=== PATIENT | female | born 1950 | race Caucasian/White ===

== ENCOUNTER → 2016-08-10 | Outpatient (REF) | payer BC ==
[2016-08-10 16:14] LABS: PERCENT SATURATION 21.1 % (13.2-37.4)
== END ==
LOC: M LAB REF 12:53
PROVIDERS: ATTEND Internal Medicine
DX: K62.5 Hemorrhage of anus and rectum (principal)

== ENCOUNTER → 2016-09-10 | Outpatient (REF) | payer BC | LOC: M LAB REF 16:45 | PROVIDERS: ATTEND Nurse Practitioner Family | DX: M79.7 Fibromyalgia (principal) ==

== ENCOUNTER → 2017-04-07 | Outpatient (CLI) | payer BC | LOC: M WHC 12:48 | DX: Z12.31 Encounter for screening mammogram for malignant neoplasm of breast (principal) | CPT/HCPCS: 77067 ==

== ENCOUNTER → 2017-10-14 | Outpatient (CLI) | payer BC ==
[2017-10-14 14:29] LABS: ERYTHROCYTE SEDIMENTATION RATE 14 mm/hr (0-30)
== END ==
LOC: M WUC 08:36
DX: M79.622 Pain in left upper arm (principal)
CPT/HCPCS: 86140

== ENCOUNTER → 2018-05-19 | Outpatient (CLI) | payer MEDICARE ==
--- NOTE | 2018-05-19 15:31 | REPMRS ---
Patient History The patient states she has not had a clinical breast exam in over a year. No known family history of cancer. Took hormonal contraceptives for 1 year. Took unspecified hormones for 6 months. 3D TOMOSYNTHESIS WAS PERFORMED. Digital Mammo Screening Bilat: May 19, 2018 - Exam #: [id number] Bilateral CC and MLO view(s) were taken. Technologist: Mary Grace Daniels, Technologist Prior study comparison: April 07, 2017, digital woman screen mammo, performed at [facility]. March 24, 2016, digital woman screen mammo, performed at [facility]. FINDINGS: There are scattered fibroglandular densities. There has been no change in the appearance of the mammogram from the prior studies. There is a mild amount of residual fibroglandular tissue which is fairly symmetric. There is no interval development of dominant mass, architectural distortion, or clustered microcalcification suggestive of malignancy. Assessment: BI-RADS/ACR category 1 mammogram. Negative Mammogram. Recommendation Routine screening mammogram in 1 year (for women over age 40). This mammogram was interpreted with the aid of an FDA-approved computer-aided dectection system. Electronically Signed By: Juan Cleary MD 05/19/18 6041
== END ==
LOC: M RAD 14:55
PROVIDERS: ATTEND Internal Medicine
DX: Z12.31 Encounter for screening mammogram for malignant neoplasm of breast (principal)

== ENCOUNTER → 2018-07-11 | Outpatient (REF) | payer MEDICARE | LOC: M LAB REF 12:54 | PROVIDERS: ATTEND Physician Assistant | DX: R30.0 Dysuria (principal) ==

== ENCOUNTER → 2018-08-18 | Outpatient (REF) | payer MEDICARE | LOC: M LAB REF 16:24 | PROVIDERS: ATTEND Physician Assistant | DX: R30.0 Dysuria (principal) ==

== ENCOUNTER → 2018-09-01 | Outpatient (REF) | payer MEDICARE | LOC: M LAB REF 17:15 | PROVIDERS: ATTEND Nurse Practitioner Family | DX: N39.0 Urinary tract infection, site not specified (principal) ==

== ENCOUNTER → 2018-09-26 | Outpatient (REF) | payer MEDICARE, OTHER ==
[2018-09-26 19:27] LABS: APPEARANCE, URINE CLEAR (CLEAR); BACTERIA, URINE AUTO NEGATIVE (NEGATIVE); BILIRUBIN, URINE AUTO NEGATIVE (NEGATIVE); BLOOD, URINE BLOOD NEGATIVE (NEGATIVE); COLOR, URINE YELLOW (YELLOW); GLUCOSE, URINE (UA) AUTO NEGATIVE (NEGATIVE); KETONE, URINE AUTO NEGATIVE (NEGATIVE); LEUKOCYTE ESTERASE, URINE AUTO NEGATIVE (NEGATIVE); NITRITE, URINE AUTO NEGATIVE (NEGATIVE); PROTEIN, URINE AUTO NEGATIVE (NEGATIVE); RBC, URINE AUTO 0 /HPF (0-3); SPECIFIC GRAVITY URINE AUTO 1.006 (1.002-1.035); SQUAMOUS EPITHELIAL CELL UR AU 0 /HPF (0-6); UROBILINOGEN, URINE AUTO 0.2 mg/dL (0.0-2.0); WBC, URINE AUTO 1 /HPF (0-3)
== END ==
LOC: M LAB REF 17:11
PROVIDERS: ATTEND Obstetrics & Gynecology
DX: N30.80 Other cystitis without hematuria (principal); N32.81 Overactive bladder

== ENCOUNTER 2018-11-09 08:52 | Day surgery (SDC) | payer MEDICARE ==
--- NOTE | 2018-11-03 18:45 | CR ---
DATE OF PLANNED ADMISSION: 11/09/2018 REFERRING PHYSICIAN: Francisco Jim MD REASON FOR CONSULTATION: Left shoulder rotator cuff repair 11/09/2018 at [facility]. Dear Dr. Jim, Thank you for asking me to see Ms. Nicki Rossi in preoperative consultation. She is as you know a 68-year-old female with past medical history of hypertension, hyperlipidemia, obesity who reports that she has been in her usual state of health. The patient notes that she has battled shoulder challenges for the last several years, ready to move forward. has been ill and has had little time to focus on herself, but is needed to be more active. Patient has history of gastroesophageal reflux disease, reports symptomatically controlled on omeprazole. The patient has hypertension. Denies chest pain or palpitations. The patient has low back pain and uses tramadol for this. The patient has fibromyalgia, feels it is chronic and stable. The patient uses MiraLax for constipation with good results. The patient has sinus allergies and uses Xyzal as needed. The patient has dysthymia and despite her stressors feels she is doing well on citalopram. The patient otherwise denies any fevers or chills, chest pain or shortness of breath, nausea, vomiting, change in bowel. PAST MEDICAL HISTORY: 1. Hypertensive cardiovascular disease. 2. Hyperlipidemia. 3. Chronic low back pain. 4. Fibromyalgia. 5. Gastroesophageal reflux disease. 6. Vitamin D deficiency. 7. Osteopenia. 8. Bilateral shoulder rotator cuff tendonitis. 9. Bilateral carpal tunnel syndrome. 10. Constipation. 11. Obesity. 12. Allergic rhinitis. 13. Postmenopausal atrophic vaginitis. PAST SURGICAL HISTORY: Status post 1975. bunionectomy. Hysterectomy for uterine fibroids. MEDICATIONS: - amlodipine 10 mg daily - citalopram 20 mg daily - Colace 100 mg daily as needed - cranberry tablet daily - estrogen vaginal cream daily - folic acid daily - MiraLax as needed - omeprazole 40 mg daily - pravastatin 20 mg daily - tramadol 2 at bedtime as needed for pain - trazodone 50 mg at bedtime - Xyzal 5 mg daily as needed ALLERGIES: SULFA ANTIBIOTICS. She gets hives. She did have nausea with DULOXETINE. SOCIAL HISTORY She is retired, , two daughters, four grandchildren. Never smoked. Denies alcohol use. FAMILY HISTORY: Father of heart attack at 57. Mom of kidney failure at 83. A brother had leukemia at 66. Two other brothers with hyperlipidemia, and a sister with heart disease. Grandparents had heart disease, diabetes. PHYSICAL EXAMINATION Obese female in no acute distress. Vital signs: Weight 221 with a BMI of 41, O2 sat is 96%, blood pressure 142/68 with a heart rate of 71. HEENT: Examination head is normocephalic. Neck is supple. Pupils equal, reactive to light. Extraocular movements are intact. Ears: Tympanic membranes are normal. Normal external auditory canals. Tongue is midline. Posterior pharynx without inflammation. Neck is supple. No JVD, thyromegaly or carotid bruits. Lungs are clear to auscultation, resonant to percussion. Cardiovascular: Regular rate and rhythm. No murmur, rub, gallop. Abdomen: Obese, soft, nontender. No had a hepatosplenomegaly. Extremities: No cyanosis, clubbing or edema. Neurologically: Alert and oriented. Cranial nerves II-XII intact. LABORATORY DATA: EKG today: Normal sinus rhythm, rate of 71, axis of -11. Normal [place], QRS, QTC normal R-wave progression, no atrial or ventricular hypertrophy. She does have Q-waves in III and aVF of questionable significance and no significant change compared to previous EKG. Blood work 11/03/2018. She has a normal med profile from 10/17/2018. She had a normal vitamin D, AST and lipids except for a triglyceride of 248. IMPRESSION: Mrs. Nicki Rossi is a 68-year-old female with cardiovascular risk factors positive for age, family history, hypertension, hyperlipidemia, obesity, has no signs or symptoms indicative of cardiovascular ischemia and is felt to be at low risk for cardiovascular complications from the proposed surgical intervention which can be further minimized by the following. 1. Hypertension. Take amlodipine a.m. of surgery, sip of water. 2. Gastroesophageal reflux disease. Take omeprazole a.m. of surgery, sip of water. 3. Hyperlipidemia. Take pravastatin as usual the evening before surgery. 4. Low back pain. Take tramadol as usual the evening prior to surgery. 5. Dysthymia. Take Celexa the evening prior to surgery as usual. Also take trazodone night before surgery. 6. Constipation. Continue p.r.n. bowel meds as needed perioperatively. 7. Allergic rhinitis. Take Xyzal as needed perioperatively. 8. Atrophic vaginitis. Use topical estrogens as needed perioperatively. 9. Osteopenia. Hold calcium in the a.m. of surgery. Thank you very much for this consultation. Please call with questions or concerns.
[~2018-11-09] VITALS: Ht 160 cm; Wt 100.7 kg
[~2018-11-09 08:52] MED LIST: AMLO10TA5 PO; ASPI81TA26 PO; CITA20TA6 PO; CVS500CA5 PO; ESTR0.1C5 VG; LEVOTAB10 PO; LISI-538 PO; LR 1,000 ML IV ONE; OMEP40CA2 PO; PRAV20TA2 PO; TRAM37.53 PO; TRAZ-252 PO; VITA500045 PO
[2018-11-09] MEDS ORDERED: dexameTHASONE 10 MG/1 ML VIAL PRES.FREE (J1100) ONE (08:53)
[2018-11-09] MEDS ORDERED: LIDOCAINE 1% MDV 20ML VIAL ONE (08:53)
[2018-11-09] MEDS ORDERED: ROPIvacaine 0.5% 30 ML INJECTION (J2795 PER 1MG) ONE (08:53)
[2018-11-09] MEDS ORDERED: fentaNYL 100 MCG/2 ML INJECTION (J3010) As Ordered ONE (09:39)
[2018-11-09] MEDS ORDERED: MIDAZOLAM INJ 2 MG/2 ML VIAL (J2250) As Ordered ONE ×2 (09:39→09:47)
[2018-11-09 09:46] LABS: BLOOD UREA NITROGEN 17 MG/DL (7-18); CALCIUM LEVEL 9.2 MG/DL (8.8-10.2); CARBON DIOXIDE LEVEL 26 MEQ/L (21-32); CHLORIDE LEVEL 107 MEQ/L (98-107); CREATININE FOR GFR 0.66 MG/DL (0.55-1.30); GLOMERULAR FILTRATION RATE > 60.0 (>45); GLUCOSE, FASTING 92 MG/DL (70-100); POTASSIUM SERUM 3.9 MEQ/L (3.5-5.1); SODIUM LEVEL 141 MEQ/L (136-145)
[2018-11-09] MEDS ORDERED: ROCURONIUM BROMIDE 50 MG/5 ML VIAL As Ordered ONE (09:47)
[2018-11-09] MEDS ORDERED: PROPOFOL 200 MG/20 ML VIAL As Ordered ONE (09:47)
[2018-11-09] MEDS ORDERED: fentaNYL 250 MCG/5 ML INJECTION (J3010) As Ordered ONE (09:47)
[2018-11-09] MEDS ORDERED: LIDOCAINE 2% INJ 100 MG/5 ML SDV (FOR ANES.) As Ordered ONE (09:47)
[2018-11-09] MEDS ORDERED: LIDOCAINE 1% MDV 20ML VIAL As Ordered ONE (10:22)
[2018-11-09] MEDS ORDERED: EPINEPHrine 1MG/ML INJ 30ML MD-VIAL As Ordered ONE (10:22)
[2018-11-09] MEDS ORDERED: MIDAZOLAM INJ 2 MG/2 ML VIAL (J2250) IV ONE (11:00)
[2018-11-09] MEDS ORDERED: fentaNYL 100 MCG/2 ML INJECTION (J3010) IV ONE (11:00)
[2018-11-09] MEDS ORDERED: PHENYLephrine HCL 500 MCG/5 ML (100MCG/ML) SYRINGE (J2370) As Ordered ONE (12:05)
[2018-11-09] MEDS ORDERED: ePHEDrine SULFATE 25 MG/5 ML(5MG/ML) SYRINGE As Ordered ONE (12:30)
[2018-11-09] MEDS ORDERED: BUPIVACAINE HCL 0.5% 30 ML VIAL As Ordered ONE (12:39)
[2018-11-09] MEDS ORDERED: dexameTHASONE 4 MG/ML 1ML VIAL (J1100) As Ordered ONE (13:09)
[2018-11-09] MEDS ORDERED: KETOROLAC 60 MG/2 ML VIAL (J1885) As Ordered ONE (13:09)
[2018-11-09] MEDS ORDERED: ONDANSETRON 4MG/2ML VIAL (J2405) As Ordered ONE (13:09)
[2018-11-09] MEDS ORDERED: GLYCOPYRROLATE INJ 0.2 MG/ML 2 ML VIAL As Ordered ONE (13:09)
[2018-11-09] MEDS ORDERED: NEOSTIGMINE 10 MG/10 ML VIAL (J2710) As Ordered ONE (13:09)
[2018-11-09] MEDS ORDERED: LR 1,000 ML IV SCH ×2 (15:15)
[2018-11-09] MEDS ORDERED: ONDANSETRON 4MG/2ML VIAL (J2405) IV PRN (15:15)
[2018-11-09] MEDS ORDERED: PERCOCET 5MG/325MG TAB PO PRN (15:15)
[2018-11-09] MEDS ORDERED: HYDROMORPHONE HCL 0.5 MG/ 0.5 ML SYRINGE (J1170 PER 1) IV PRN (15:15)
[2018-11-09] MEDS ORDERED: fentaNYL 100 MCG/2 ML INJECTION (J3010) IV PRN (15:15)
[2018-11-09 17:00] VITALS: BP 151/75
--- NOTE | 2018-11-10 20:42 | RO ---
DATE OF PROCEDURE: 11/09/2018 PREOPERATIVE DIAGNOSES: 1. Left shoulder full-thickness rotator cuff tear. 2. Left shoulder biceps tendonitis. 3. Left shoulder impingement. 4. Left shoulder acromioclavicular (AC) joint arthritis. POSTOPERATIVE DIAGNOSES: 1. Left shoulder full-thickness rotator cuff tear. 2. Left shoulder biceps tendonitis. 3. Left shoulder impingement. 4. Left shoulder acromioclavicular (AC) joint arthritis. PROCEDURES: 1. Left shoulder arthroscopic rotator cuff repair including subscapularis. 2. Left shoulder open subpectoral biceps tenodesis. 3. Left shoulder arthroscopic distal clavicle excision. SURGEON: Dr. Francisco Jim SENIOR MANUFACTURING TECHNICIAN: SOFÍA Meraz ANESTHESIA: General with preoperative nerve block. IV FLUIDS: Lactated Ringer's. ESTIMATED BLOOD LOSS: 5 mL. IMPLANTS: Arthrex proximal biceps button times one, Arthrex 4.75 mm PEEK SwiveLock anchor times five. CLOSURE: Nylon and Monocryl. COMPLICATIONS: None. DESCRIPTION OF PROCEDURE: The patient was identified in the preoperative holding area. The left shoulder was marked by myself. She had an interscalene nerve block by anesthesia. She was brought to the operating room, placed supine on a well-padded operating room (OR) table with a beanbag. General anesthesia was induced. Exam under anesthesia revealed full range of motion and no instability. She was then placed into the right side down lateral decubitus position with an axillary roll and all bony prominences were well padded. Left arm was placed in the Arthrex STaR Sleeve lateral decubitus traction quiroz with 10 pounds of traction. She had bilateral Venodyne boots for deep vein thrombosis (DVT) prophylaxis. She received appropriate IV antibiotics within 1 hour of incision. The left shoulder was then prepped and draped in the normal sterile fashion with Chloraprep. Prior to incision, time-out was performed per hospital protocol. Hao Ramirez was present for the entire procedure and participated in all essential portions of the procedure. This included patient positioning and draping, holding the arthroscope, holding retractors during the biceps tenodesis, and assisting with the whipstitch, using the mallet and awl to help place anchors and retrieving sutures and the wound closure. The left shoulder was insufflated with lactated Ringer's. A standard posterior viewing portal made with 11-blade. 30 degree arthroscope was introduced into the joint. There was extensive hemosiderin deposition in extensive synovitis. There was a tear in the upper border of the subscapularis. There was partial thickness tearing of the long head of the biceps. There was a full-thickness tear of the supraspinatus. Posterior rotator cuff intact. Grade 1 to 2 chondromalacia in the humeral, head grade 1 in the glenoid. An anterior working portal was established through the rotator interval and the subscapularis (subscap) lifted off when doing the posterior lever push maneuver. There was also tearing of the biceps, so performed a tenotomy with the meniscal punch. The shaver was used to perform a chondroplasty and a labral debridement. Cautery was also used to partially ablate the rotator interval to fully expose the subscap. An accessory superolateral portal was then established and the shaver used to remove 1-2 mm of articular cartilage and to remove soft tissue at the lesser tuberosity to create a bleeding surface. The Scorpion was used to pass FiberTape through the upper border of the subscapularis. Sutures then retrieved out the original anterior portal, loaded through a 4.75 mm PEEK SwiveLock anchor. The awl was used to create a socket in the lesser tuberosity. The anchor was docked, sutures tensioned, the anchor inserted by hand with excellent fixation. This nicely restored the subscapularis. Sutures cut with the arthroscopic decorative greens cutter. I then proceeded with an open subpectoral (subpec) biceps tenodesis. 15 blade used to make an incision just lateral to the axilla. Dissection with electrocautery and Metzenbaum scissors down to biceps fascia, which was carefully opened. Tendon was easily identified and retrieved with a right angle clamp. There was extensive partial thickness tearing. The Arthrex proximal biceps kit was opened, the fiber loop used to create a running locking whipstitch through the tendon. Excess tendon trimmed and discarded. The sutures loaded through the button per routine. The spade tip drill bit used to create a drill hole within the bicipital groove just proximal to lower edge of the pec major tendon. This was a unicortical drill hole. Irrigation used to remove bony debris. Sutures were loaded through the button per routine, then the button was passed through the drill hole, sutures were toggled which flipped the button and docked the tendon along the bicipital groove nicely. This nicely restored the resting tension. The curve-free needle was used to pass one limb of suture back through the tendon, knots tied by hand to lock the construct in place. The incision was then extensively irrigated, then closed in a layered fashion with #2-0 Vicryl and a running #3-0 Monocryl, and at the end of the case, Steri-Strips were placed. The arthroscope was placed back into the shoulder, now into the subacromial space where there was extensive bursitis. Bursectomy performed with a shaver and cautery. There was a full-thickness tear, crescent-shaped tear in the supraspinatus. The ring curette was used to remove soft tissue off the tuberosity to create a bleeding surface. Cuff grasper used to manipulate the tendon to determine the appropriate configuration of the repair. The Arthrex SpeedBridge kit was opened. I placed one 4.75 mm PEEK SwiveLock anchor preloaded with tape just off the articular surface anteriorly and sutures were passed with a Scorpion. Next, the preloaded anchor was placed in the posterior aspect just off the articular surface. However, this had poor fixation, so it was ultimately removed and a new anchor was placed with much better fixation in a new socket. Those sutures were passed with the Scorpion. A dog ear reduction stitch of an additional limb of tape was passed in the far posterior portion of the tear. One limb of tape from each medial anchor was then brought out through an anterolateral cannula, loaded through a 4.75 mm PEEK SwiveLock anchor and the socket created, anchor docked, sutures tensioned, and then anchor inserted by hand with excellent fixation. These steps were repeated with the posterior sutures to complete the SpeedBridge repair, and there were no dog ears. This nicely advanced the supraspinatus onto the greater tuberosity. The shoulder was gently internally an externally rotated. There was no lift off or buckling. Next, turned attention to the distal clavicle excision. There was bone on bone contact. The bur was used through the anterior portal to remove approximately 6-7 mm of the distal clavicle. The scope was intermittently placed into the anterior portal to get a direct view and ensure there was no remaining posterior or superior bone. The shoulder was irrigated and drained. Portals were closed with nylon suture. Bulky sterile dressing applied. She was then carefully placed into her sling. At the time of this dictation, the patient is about to be extubated and transferred to the post-anesthesia care unit (PACU).
== END 2018-11-09 17:05 | disposition home or self-care (01) ==
LOC: M SDC 08:52
PROVIDERS: ATTEND Orthopaedic Surgery
DX: M75.122 Complete rotator cuff tear or rupture of left shoulder, not specified as traumatic (principal); M75.22 Bicipital tendinitis, left shoulder; M75.42 Impingement syndrome of left shoulder; M19.012 Primary osteoarthritis, left shoulder; M94.212 Chondromalacia, left shoulder; I10 Essential (primary) hypertension; E78.5 Hyperlipidemia, unspecified; K44.9 Diaphragmatic hernia without obstruction or gangrene; K21.9 Gastro-esophageal reflux disease without esophagitis; G47.30 Sleep apnea, unspecified; F41.9 Anxiety disorder, unspecified; F32.9 Major depressive disorder, single episode, unspecified; Z91.040 Latex allergy status; Z88.2 Allergy status to sulfonamides; Z79.899 Other long term (current) drug therapy
CPT/HCPCS: 23430; 29824; 29827; 36415; 80048; 88304; C1713; J0690; J1100; J1885; J2250; J2370; J2405; J2710; J2795; J3010

== ENCOUNTER → 2018-11-20 | Outpatient (REF) | payer MEDICARE ==
[~2018-11-20] MED LIST changes: -LR 1,000 ML IV ONE
[2018-11-20 18:43] LABS: APPEARANCE, URINE CLEAR (CLEAR); BACTERIA, URINE AUTO NEGATIVE (NEGATIVE); BILIRUBIN, URINE AUTO NEGATIVE (NEGATIVE); BLOOD, URINE BLOOD 2+ (NEGATIVE); COLOR, URINE STRAW (YELLOW); GLUCOSE, URINE (UA) AUTO NEGATIVE (NEGATIVE); KETONE, URINE AUTO NEGATIVE (NEGATIVE); LEUKOCYTE ESTERASE, URINE AUTO 3+ (NEGATIVE); NITRITE, URINE AUTO NEGATIVE (NEGATIVE); PROTEIN, URINE AUTO NEGATIVE (NEGATIVE); RBC, URINE AUTO 2 /HPF (0-3); SPECIFIC GRAVITY URINE AUTO 1.005 (1.002-1.035); SQUAMOUS EPITHELIAL CELL UR AU 0 /HPF (0-6); UROBILINOGEN, URINE AUTO 0.2 mg/dL (0.0-2.0); WBC, URINE AUTO 66 /HPF (0-3)
== END ==
LOC: M LAB REF 17:14
PROVIDERS: ATTEND Obstetrics & Gynecology
DX: N30.80 Other cystitis without hematuria (principal)

== ENCOUNTER 2018-12-27 11:00 | Outpatient (RCR) | payer MEDICARE | END 2019-01-01 | LOC: M PT 11:00 | PROVIDERS: ATTEND Orthopaedic Surgery | DX: Z47.89 Encounter for other orthopedic aftercare (principal); Z98.890 Other specified postprocedural states; M25.512 Pain in left shoulder ==

== ENCOUNTER → 2019-02-01 | Outpatient (RCR) | payer MEDICARE ==
[~2019-02-01] MED LIST changes: -OMEP40CA2 PO; +OMEP40CA97 PO
== END ==
LOC: M PT 01-02 10:59
PROVIDERS: ATTEND Orthopaedic Surgery
DX: Z47.89 Encounter for other orthopedic aftercare (principal)

== ENCOUNTER 2019-02-27 11:36 | Outpatient (RCR) | payer MEDICARE ==
[~2019-02-27 11:36] MED LIST changes: +MAGN250T7 PO
== END 2019-03-03 ==
LOC: M PT 11:36
PROVIDERS: ATTEND Orthopaedic Surgery
DX: Z47.89 Encounter for other orthopedic aftercare (principal)

== ENCOUNTER → 2019-04-03 | Outpatient (RCR) | payer MEDICARE | LOC: M PT 03-06 10:18 | PROVIDERS: ATTEND Orthopaedic Surgery | DX: Z47.89 Encounter for other orthopedic aftercare (principal) ==

== ENCOUNTER → 2019-04-16 | Outpatient (REF) | payer MEDICARE ==
[2019-04-16 18:39] LABS: APPEARANCE, URINE CLEAR (CLEAR); BACTERIA, URINE AUTO 1+ (NEGATIVE); BILIRUBIN, URINE AUTO NEGATIVE (NEGATIVE); BLOOD, URINE BLOOD 1+ (NEGATIVE); COLOR, URINE STRAW (YELLOW); GLUCOSE, URINE (UA) AUTO NEGATIVE (NEGATIVE); KETONE, URINE AUTO NEGATIVE (NEGATIVE); LEUKOCYTE ESTERASE, URINE AUTO 3+ (NEGATIVE); NITRITE, URINE AUTO NEGATIVE (NEGATIVE); PROTEIN, URINE AUTO NEGATIVE (NEGATIVE); RBC, URINE AUTO 1 /HPF (0-3); SPECIFIC GRAVITY URINE AUTO 1.003 (1.002-1.035); SQUAMOUS EPITHELIAL CELL UR AU 0 /HPF (0-6); UROBILINOGEN, URINE AUTO 0.2 mg/dL (0.0-2.0); WBC, URINE AUTO 14 /HPF (0-3)
== END ==
LOC: M LAB REF 17:10
PROVIDERS: ATTEND Obstetrics & Gynecology
DX: N39.0 Urinary tract infection, site not specified (principal)

== ENCOUNTER 2019-05-03 09:58 | Outpatient (RCR) | payer MEDICARE | END 2019-05-04 | LOC: M PT 09:58 | PROVIDERS: ATTEND Orthopaedic Surgery | DX: Z47.89 Encounter for other orthopedic aftercare (principal) ==

== ENCOUNTER 2019-05-07 10:01 | Outpatient (RCR) | payer MEDICARE | END 2019-06-02 | LOC: M PT 10:01 | PROVIDERS: ATTEND Orthopaedic Surgery | DX: Z47.89 Encounter for other orthopedic aftercare (principal) ==

== ENCOUNTER → 2019-10-02 | Outpatient (CLI) | payer MEDICARE ==
--- NOTE | 2019-10-02 10:47 | REPMRS ---
Patient History The patient states she had a clinical breast exam in 2019. Patient is postmenopausal. No known family history of cancer. Took hormonal contraceptives for 1 year. Taking estrogen for 1 year. Took unspecified hormones for 6 months. Digital Woman Screen Mammo: October 02, 2019 - Exam #: [id number] Bilateral CC and MLO view(s) were taken. Technologist: Mary Grace Daniels, Technologist Prior study comparison: May 19, 2018, bilateral digital mammo screening bilat, performed at [facility]. April 07, 2017, digital woman screen mammo performed at [facility]. March 24, 2016, digital woman screen mammo performed at [facility]. FINDINGS: The breast tissue is almost entirely fat. The Volpara volumetric breast density category is: A. There has been no change in the appearance of the mammogram from the prior studies. There is no interval development of dominant mass, architectural distortion, or grouped microcalcification typical of malignancy. 3-D tomosynthesis shows no additional findings. Assessment: BI-RADS/ACR category 1 mammogram. Negative Mammogram. Recommendation Routine screening mammogram of both breasts in 1 year (for women over age 40). This patient's Lifetime Breast Cancer RIsk is estimated at 5.0 %. This mammogram was interpreted with the aid of an FDA-approved computer-aided dectection system. Electronically Signed By: Ahsan Whitney MD 10/02/19 9900
--- NOTE | 2019-10-05 14:08 | DEXA ---
AP SPINE L1 - L4 1.270 0.7 2.4 LT FEMUR TOTAL 1.065 0.5 1.8 LT NECK 0.841 -1.4 0.1 RT FEMUR TOTAL 1.072 0.5 1.8 RT NECK 0.863 -1.3 0.3 TOTAL BODY TOTAL OTHER COMMENTS: Normal bone densitometry of the spine. There is low bone density of the hips. The density of the spine has increased 2.3% since the initial exam on 10/09/2003. The increased 12.9% since the most recent exam on 03/18/2004. The density of the left hip has decreased 13.8% since the initial exam on 10/09/2003. The density of the left hip has decreased 7.1% since the most recent exam on 03/18/2014. The density of the right hip has decreased 8.0% since the initial exam on 10/09/2003. The density of the right hip has decreased 0.3% since the most recent exam on 03/18/2014. FOLLOW-UP: Recommendation for the next bone density exam: 2 years. RANDA
== END ==
LOC: M WHC 09:30
PROVIDERS: ATTEND Nurse Practitioner Family
DX: Z12.31 Encounter for screening mammogram for malignant neoplasm of breast (principal); M85.851 Other specified disorders of bone density and structure, right thigh; M85.852 Other specified disorders of bone density and structure, left thigh

== ENCOUNTER → 2020-04-09 | Outpatient (REF) | payer MEDICARE ==
[~2020-04-09] MED LIST changes: -AMLO10TA5 PO; +AMLO1TAB25 PO
[2020-04-09 17:27] LABS: APPEARANCE, URINE CLEAR (CLEAR); BACTERIA, URINE AUTO NEGATIVE (NEGATIVE); BILIRUBIN, URINE AUTO NEGATIVE (NEGATIVE); BLOOD, URINE BLOOD NEGATIVE (NEGATIVE); COLOR, URINE STRAW (YELLOW); GLUCOSE, URINE (UA) AUTO NEGATIVE (NEGATIVE); KETONE, URINE AUTO NEGATIVE (NEGATIVE); LEUKOCYTE ESTERASE, URINE AUTO 3+ (NEGATIVE); NITRITE, URINE AUTO NEGATIVE (NEGATIVE); PROTEIN, URINE AUTO NEGATIVE (NEGATIVE); RBC, URINE AUTO 1 /HPF (0-3); SQUAMOUS EPITHELIAL CELL UR AU 0 /HPF (0-6); UROBILINOGEN, URINE AUTO 0.2 mg/dL (0.0-2.0); WBC, URINE AUTO 29 /HPF (0-3)
== END ==
LOC: M LAB REF 16:36
PROVIDERS: ATTEND Obstetrics & Gynecology
DX: N39.0 Urinary tract infection, site not specified (principal)

== ENCOUNTER → 2020-05-23 | Outpatient (REF) | payer MEDICARE ==
[~2020-05-23] MED LIST changes: -LISI-538 PO; +LISI20TA33 PO
[2020-05-23 17:33] LABS: APPEARANCE, URINE CLEAR (CLEAR); BACTERIA, URINE AUTO NEGATIVE (NEGATIVE); BILIRUBIN, URINE AUTO NEGATIVE (NEGATIVE); BLOOD, URINE BLOOD NEGATIVE (NEGATIVE); COLOR, URINE YELLOW (YELLOW); GLUCOSE, URINE (UA) AUTO NEGATIVE (NEGATIVE); KETONE, URINE AUTO NEGATIVE (NEGATIVE); LEUKOCYTE ESTERASE, URINE AUTO NEGATIVE (NEGATIVE); NITRITE, URINE AUTO NEGATIVE (NEGATIVE); PROTEIN, URINE AUTO NEGATIVE (NEGATIVE); RBC, URINE AUTO 0 /HPF (0-3); SPECIFIC GRAVITY URINE AUTO 1.009 (1.002-1.035); SQUAMOUS EPITHELIAL CELL UR AU 1 /HPF (0-6); UROBILINOGEN, URINE AUTO 0.2 mg/dL (0.0-2.0); WBC, URINE AUTO 1 /HPF (0-3)
== END ==
LOC: M LAB REF 16:19
PROVIDERS: ATTEND Obstetrics & Gynecology
DX: N39.0 Urinary tract infection, site not specified (principal)

== ENCOUNTER → 2020-08-13 | Outpatient (REF) | payer MEDICARE ==
[2020-08-13 16:48] LABS: APPEARANCE, URINE CLOUDY (CLEAR); BACTERIA, URINE AUTO 1+ (NEGATIVE); BILIRUBIN, URINE AUTO NEGATIVE (NEGATIVE); BLOOD, URINE BLOOD 3+ (NEGATIVE); COLOR, URINE YELLOW (YELLOW); GLUCOSE, URINE (UA) AUTO NEGATIVE (NEGATIVE); KETONE, URINE AUTO NEGATIVE (NEGATIVE); LEUKOCYTE ESTERASE, URINE AUTO 3+ (NEGATIVE); NITRITE, URINE AUTO NEGATIVE (NEGATIVE); PROTEIN, URINE AUTO 2+ mg/dL (NEGATIVE); RBC, URINE AUTO TNTC /HPF (0-3); SPECIFIC GRAVITY URINE AUTO 1.012 (1.002-1.035); SQUAMOUS EPITHELIAL CELL UR AU 1 /HPF (0-6); UROBILINOGEN, URINE AUTO 0.2 mg/dL (0.0-2.0); WBC, URINE AUTO TNTC /HPF (0-3)
== END ==
LOC: M LAB REF 16:08
PROVIDERS: ATTEND Obstetrics & Gynecology
DX: N30.01 Acute cystitis with hematuria (principal)

== ENCOUNTER → 2021-01-05 | Outpatient (REF) | payer MEDICARE ==
[~2021-01-05] MED LIST changes: +OMEP40CA4 PO; -OMEP40CA97 PO
[2021-01-05 16:06] LABS: APPEARANCE, URINE CLEAR (CLEAR); BACTERIA, URINE AUTO 1+ (NEGATIVE); BILIRUBIN, URINE AUTO NEGATIVE (NEGATIVE); BLOOD, URINE BLOOD NEGATIVE (NEGATIVE); COLOR, URINE STRAW (YELLOW); GLUCOSE, URINE (UA) AUTO NEGATIVE (NEGATIVE); KETONE, URINE AUTO NEGATIVE (NEGATIVE); LEUKOCYTE ESTERASE, URINE AUTO NEGATIVE (NEGATIVE); NITRITE, URINE AUTO NEGATIVE (NEGATIVE); PROTEIN, URINE AUTO NEGATIVE (NEGATIVE); RBC, URINE AUTO 0 /HPF (0-3); SPECIFIC GRAVITY URINE AUTO 1.008 (1.002-1.035); SQUAMOUS EPITHELIAL CELL UR AU 3 /HPF (0-6); UROBILINOGEN, URINE AUTO 0.2 mg/dL (0.0-2.0); WBC, URINE AUTO 1 /HPF (0-3)
== END ==
LOC: M LAB REF 15:36
PROVIDERS: ATTEND Obstetrics & Gynecology
DX: N30.00 Acute cystitis without hematuria (principal)

== ENCOUNTER → 2021-01-28 | Outpatient (CLI) | payer MEDICARE ==
--- NOTE | 2021-01-28 16:53 | REPMRS ---
Patient History The patient states she has not had a clinical breast exam in over a year. Patient is postmenopausal. No known family history of cancer. Took hormonal contraceptives for 1 year. Taking estrogen for 2 years. Took unspecified hormones for 6 months. Patient states no breast complaints today. Patient has signed MRS History Sheet. Digital Woman Screen Mammo: January 28, 2021 - Exam #: [id number] Bilateral CC and MLO view(s) were taken. Technologist: Karey Walsh, Technologist Prior study comparison: October 02, 2019, bilateral digital woman screen mammo performed at [facility]. May 19, 2018, bilateral digital mammo screening bilat, performed at [facility]. FINDINGS: The breast tissue is almost entirely fat. Screening. Digital screening (2D) mammography was performed bilaterally in the CC and MLO projections. Additionally, breast tomosynthesis (3D mammography) was performed bilaterally in the CC and MLO projections. Todays exam was compared to the prior exam/exams. By history, the patient has no complaints of a palpable breast abnormality or other significant breast complaints. The Volpara volumetric breast density category is A, the breasts are almost entirely fatty. The breasts are unchanged in size and shape. There are no jesus-soft tissue densities or spiculated masses. There is no internal architectural distortion. There are no suspicious jesus-calcific clusters. Skin thickening or nipple retraction is not present. IMPRESSION: BI-RADS Category 2- Benign Findings. There is no evidence of malignant alteration of the breasts. Followup examination recommended in one year. The lifetime Tyrer-Cuzick score is 4.4% This mammogram was read with the assistance of [employer] ([employer]),an FDA approved computer aided detection system for mammography. Negative x-ray reports should not delay surgical consultation if a dominant or clinically suspicious mass is present. Not all breast cancers can be identified by mammography. Therefore, we recommend that you continue to perform regular breast self-examination and physical examination and then promptly contact your physician of any concerns or changes. Adenosis and dense breasts may obscure an underlying neoplasm. No significant changes when compared with prior studies. Assessment: BI-RADS/ACR category 2 mammogram. Benign Findings. Recommendation Routine screening mammogram of both breasts in 1 year. Electronically Signed By: Pawel Whitfield MD 01/28/21 [id number]
== END ==
LOC: M WHC 10:35
PROVIDERS: ATTEND Registered Nurse
DX: Z12.31 Encounter for screening mammogram for malignant neoplasm of breast (principal); Z78.0 Asymptomatic menopausal state

== ENCOUNTER → 2021-04-16 | Outpatient (REF) | payer MEDICARE ==
[2021-04-16 14:03] LABS: APPEARANCE, URINE CLEAR (CLEAR); BACTERIA, URINE AUTO NEGATIVE (NEGATIVE); BILIRUBIN, URINE AUTO NEGATIVE (NEGATIVE); BLOOD, URINE BLOOD NEGATIVE (NEGATIVE); COLOR, URINE YELLOW (YELLOW); GLUCOSE, URINE (UA) AUTO NEGATIVE (NEGATIVE); KETONE, URINE AUTO NEGATIVE (NEGATIVE); LEUKOCYTE ESTERASE, URINE AUTO 1+ (NEGATIVE); NITRITE, URINE AUTO NEGATIVE (NEGATIVE); PROTEIN, URINE AUTO NEGATIVE (NEGATIVE); RBC, URINE AUTO 0 /HPF (0-3); SPECIFIC GRAVITY URINE AUTO 1.006 (1.002-1.035); SQUAMOUS EPITHELIAL CELL UR AU 1 /HPF (0-6); UROBILINOGEN, URINE AUTO 0.2 mg/dL (0.0-2.0); WBC, URINE AUTO 13 /HPF (0-3)
== END ==
LOC: M SMT 12:50
PROVIDERS: ATTEND Nurse Practitioner Women's Health
DX: N39.0 Urinary tract infection, site not specified (principal)

== ENCOUNTER → 2021-04-22 | Outpatient (CLI) | payer MEDICARE | LOC: M RAD 13:16 | PROVIDERS: ATTEND Nurse Practitioner Women's Health | DX: N39.0 Urinary tract infection, site not specified (principal); N28.1 Cyst of kidney, acquired ==

== ENCOUNTER → 2022-01-29 | Outpatient (CLI) | payer MEDICARE | LOC: M WHC 10:32 | PROVIDERS: ATTEND Registered Nurse | DX: Z12.31 Encounter for screening mammogram for malignant neoplasm of breast (principal); Z13.820 Encounter for screening for osteoporosis ==

== ENCOUNTER → 2022-02-05 | Outpatient (CLI) | payer MEDICARE | LOC: M WHC 12:45 | PROVIDERS: ATTEND Registered Nurse | DX: Z13.820 Encounter for screening for osteoporosis (principal); M85.89 Other specified disorders of bone density and structure, multiple sites ==

== ENCOUNTER → 2022-12-24 | Outpatient (REF) | payer MEDICARE ==
[2022-12-24 12:45] LABS: C REACTIVE PROTEIN QUANTITATIV < 0.40 MG/DL (<1.0)
[2022-12-25 13:07] LABS: ANTINUCLEAR ANTIBODIES DIRECT Negative (Negative)
== END ==
LOC: M LAB REF 11:43
PROVIDERS: ATTEND Physician Assistant Medical
DX: M79.7 Fibromyalgia (principal)

== ENCOUNTER → 2023-02-04 | Outpatient (CLI) | payer OTHER | LOC: M WHC 10:41 | PROVIDERS: ATTEND Physician Assistant Medical | DX: Z12.31 Encounter for screening mammogram for malignant neoplasm of breast (principal) ==

== ENCOUNTER → 2023-09-10 | Outpatient (REF) | payer MEDICARE, OTHER ==
[~2023-09-10] MED LIST changes: +CRAN500C11 PO; -CVS500CA5 PO
[2023-09-10 18:38] LABS: APPEARANCE, URINE HAZY (CLEAR); BACTERIA, URINE AUTO NEGATIVE (NEGATIVE); BILIRUBIN, URINE AUTO NEGATIVE (NEGATIVE); BLOOD, URINE BLOOD 1+ (NEGATIVE); COLOR, URINE YELLOW (YELLOW); GLUCOSE, URINE (UA) AUTO NEGATIVE (NEGATIVE); KETONE, URINE AUTO NEGATIVE (NEGATIVE); LEUKOCYTE ESTERASE, URINE AUTO 3+ (NEGATIVE); MUCUS, URINE SMALL (NEGATIVE); NITRITE, URINE AUTO NEGATIVE (NEGATIVE); PROTEIN, URINE AUTO NEGATIVE (NEGATIVE); RBC, URINE AUTO 3 /HPF (0-3); SPECIFIC GRAVITY URINE AUTO 1.002 (1.002-1.035); SQUAMOUS EPITHELIAL CELL UR AU 0 /HPF (0-6); UROBILINOGEN, URINE AUTO 0.2 mg/dL (0.0-2.0); WBC, URINE AUTO 23 /HPF (0-3)
== END ==
LOC: M LAB REF 17:43
PROVIDERS: ATTEND Physician Assistant Medical
DX: N39.0 Urinary tract infection, site not specified (principal)

== ENCOUNTER → 2023-09-13 | Outpatient (CLI) | payer MEDICARE, OTHER | LOC: M WUC 10:03 | PROVIDERS: ATTEND Physician Assistant Medical | DX: R05.3 Chronic cough (principal) ==

== ENCOUNTER → 2023-10-18 | Outpatient (CLI) | payer MEDICARE ==
[~2023-10-18] MED LIST changes: +TRAM-443 PO; -TRAM37.53 PO
== END ==
LOC: M WUC 11:24
PROVIDERS: ATTEND Physician Assistant Medical
DX: M79.672 Pain in left foot (principal)

== ENCOUNTER → 2024-02-08 | Outpatient (CLI) | payer MEDICARE ==
[~2024-02-08] MED LIST changes: -CRAN500C11 PO; +CVS500CA5 PO; -TRAM-443 PO; +TRAM1TAB42 PO
== END ==
LOC: M WHC 10:49
PROVIDERS: ATTEND Physician Assistant Medical
DX: Z12.31 Encounter for screening mammogram for malignant neoplasm of breast (principal)

== ENCOUNTER → 2024-02-09 | Outpatient (REF) | payer MEDICARE ==
[2024-02-09 17:16] LABS: C REACTIVE PROTEIN QUANTITATIV < 0.40 MG/DL (<1.0)
[2024-02-09 17:18] LABS: RHEUMATOID FACTOR QUANT < 3.5 IU/ML (<14)
[2024-02-09 17:23] LABS: URIC ACID 3.8 MG/DL (3.1-7.8)
[2024-02-13 14:27] LABS: ANA PATTERN Nuclear, Homogeneous (NEGATIVE); ANA SCREEN, IFA POSITIVE (NEGATIVE); ANA TITER 1:40 titer (<1:40)
[2024-02-14 01:11] LABS: CYCLIC CITRULLINATED PEPTIDE < 16 UNITS (<20)
== END ==
LOC: M LAB REF 16:21
PROVIDERS: ATTEND Physician Assistant Medical
DX: M79.7 Fibromyalgia (principal)

== ENCOUNTER → 2024-04-30 | Outpatient (CLI) | payer MEDICARE | LOC: M SOG 14:51 | PROVIDERS: ATTEND Orthopaedic Surgery | DX: M25.552 Pain in left hip (principal) ==

== ENCOUNTER → 2024-05-18 | Outpatient (CLI) | payer MEDICARE ==
[~2024-05-18] MED LIST changes: +LIDOCAINE 1% MDV 20ML VIAL As Ordered ONE; +methylPREDNISolone SUSP 40MG/ML 1ML VIAL (DEPO MEDROL) As Ordered ONE
== END ==
LOC: M IRPRO 14:41
PROVIDERS: ATTEND Orthopaedic Surgery
DX: M70.62 Trochanteric bursitis, left hip (principal)
CPT/HCPCS: 20611; J0665; J1010

== ENCOUNTER → 2024-06-28 | Outpatient (CLI) | payer MEDICARE ==
[~2024-06-28] MED LIST changes: -LIDOCAINE 1% MDV 20ML VIAL As Ordered ONE
== END ==
LOC: M IRPRO 14:54
PROVIDERS: ATTEND Orthopaedic Surgery
DX: M70.61 Trochanteric bursitis, right hip (principal)
CPT/HCPCS: 20611; J0665; J1010

== ENCOUNTER → 2024-11-12 | Outpatient (CLI) | payer MEDICARE ==
[~2024-11-12] MED LIST changes: -PRAV20TA2 PO; +PRAV20TA78 PO; -methylPREDNISolone SUSP 40MG/ML 1ML VIAL (DEPO MEDROL) As Ordered ONE
== END ==
LOC: M SOG 07:01
PROVIDERS: ATTEND Orthopaedic Surgery
DX: M25.511 Pain in right shoulder (principal)

== ENCOUNTER → 2025-01-02 | Outpatient (CLI) | payer MEDICARE | LOC: M RAD 06:37 | PROVIDERS: ATTEND Orthopaedic Surgery | DX: M25.511 Pain in right shoulder (principal) ==

== ENCOUNTER 2025-01-31 10:00 | Outpatient (RCR) | payer MEDICARE | END 2025-02-01 | LOC: M PT 10:00 | PROVIDERS: ATTEND Orthopaedic Surgery | DX: M75.121 Complete rotator cuff tear or rupture of right shoulder, not specified as traumatic (principal) ==

== ENCOUNTER → 2025-02-07 | Outpatient (CLI) | payer MEDICARE | LOC: M WHC 09:43 | PROVIDERS: ATTEND Physician Assistant Medical | DX: D48.7 Neoplasm of uncertain behavior of other specified sites (principal); R92.313 Mammographic fatty tissue density, bilateral breasts; N64.59 Other signs and symptoms in breast | CPT/HCPCS: 76642; 77066; G0279 ==